=== PATIENT | male | born 1955 | race African-American/Black ===

== ENCOUNTER 2023-05-25 19:04 | Inpatient (IN) | payer OTHER ==
[~2023-05-25] VITALS: Ht 175.3 cm; Wt 96.7 kg
[2023-05-25] MEDS: SODIUM CHLORIDE 0.9% 1000ML BAG (SEPSIS BOLUS) IV ONE (19:15)
[2023-05-25 19:40] LABS: BASOPHILS % 0.4 % (0.0-2.0); EOSINOPHILS % 0.2 % (0.0-5.0); HEMATOCRIT. 34.6 % (42.0-52.0); HEMOGLOBIN. 11.3 g/dL (14.0-18.0); LYMPHOCYTES % 14.9 % (20.0-50.0); MEAN CORPUSCULAR HEMOGLOBIN 28.1 pg (28.0-32.0); MEAN CORPUSCULAR HGB CONC 32.7 g/dL (31.0-37.0); MEAN PLATELET VOLUME 7.9 fl (7.4-10.4); MONOCYTES % 13.5 % (2.0-8.0); PLATELET 266 x1000/uL (130-400); RED BLOOD CELL COUNT 4.02 mill/uL (4.7-6.1); RED CELL DISTRIBUTION WIDTH 16.2 % (11.6-14.6); WHITE BLOOD COUNT 9.4 x1000/uL (4.5-11.0)
[2023-05-25] MEDS: ACETAMINOPHEN 325MG TABLET PO STA (19:49)
[2023-05-25 19:58] LABS: ALANINE AMINOTRANSFERASE 21 IU/L (10-49); ASPARTATE AMINOTRANSFERASE 37 IU/L (<34); BILIRUBIN TOTAL 1.3 mg/dL (0.1-1.0); CALCIUM 8.3 mg/dL (8.7-10.4); CARBON DIOXIDE 28 mEq/L (21-32); CHLORIDE 107 mEq/L (98-107); GLUCOSE 182 mg/dL (70-105); PROTEIN TOTAL 7.3 g/dL (6.0-8.3); SODIUM 142 mEq/L (136-145); UREA NITROGEN BLOOD 13 mg/dL (9-23)
[2023-05-25 20:00] LABS: POTASSIUM 2.8 mEq/L (3.5-5.1)
[2023-05-25 20:01] LABS: TROPONIN I HIGH SENSITIVITY 1432 ng/L (3.0-53)
[2023-05-25] MEDS: FUROSEMIDE 40MG/4ML VIAL IVP ONE (22:15)
[2023-05-25] MEDS: ASPIRIN 81MG TABLET PO ONE (22:15)
[2023-05-25] MEDS: POTASSIUM CHLORIDE 20MEQ/PACKET PO ONE (22:15)
[2023-05-25] MEDS: KCL 20MEQ/100ML PREMIX 100 ML IV ONE (22:43)
[2023-05-26] VITALS (8 sets, daily range): BP systolic 86–128; BP diastolic 59–82; PULSE 79–88; RESP 16–33; TEMP 97.6–98.5
[2023-05-26 00:09] LABS: TROPONIN I HIGH SENSITIVITY 3085 ng/L (3.0-53)
[2023-05-26] MEDS: ENOXAPARIN 80MG/0.8ML SYR SUBCUT ONE (00:24)
[2023-05-26] MEDS: AZITHROMYCIN 500MG/250ML 250 ML IV ONE (00:24)
[2023-05-26] MEDS: CEFTRIAXONE 1GM/50ML 50 ML IV ONE (00:24)
[2023-05-26 08:48] LABS: CLARITY URINE CLOUDY (CLEAR); COLOR URINE YELLOW (YELLOW); GLUCOSE URINE 3+ (NEGATIVE); KETONES URINE TRACE (NEGATIVE); LEUKOCYTE ESTERASE URINE TRACE (NEGATIVE); NITRITE URINE POSITIVE (NEGATIVE); OCCULT BLOOD URINE 1+ (NEGATIVE); PH URINE 5.5 (4.5-8.0); PROTEIN URINE TRACE (NEGATIVE); SPECIFIC GRAVITY URINE 1.015 (1.005-1.030)
[2023-05-26 09:35] LABS: BACTERIA URINE 3+
[2023-05-26 09:36] LABS: SQUAMOUS EPITHELIAL CELL URINE 1+ /lpf (RARE/1+)
[2023-05-26 09:37] LABS: WBC URINE 0-2 /hpf (0-2); YEAST URINE 1+
[2023-05-26 09:38] LABS: RBC URINE NONE SEEN /hpf (0-2)
[2023-05-26] MEDS ORDERED: ONDANSETRON HCL 4MG/2ML INJ IV PRN (11:30)
[2023-05-26] MEDS ORDERED: ACETAMINOPHEN 325MG TABLET PO PRN (11:30)
[2023-05-26] MEDS: AZITHROMYCIN 250 MG TABLET PO SCH (12:00)
[2023-05-26] MEDS: ASPIRIN 81MG TABLET PO SCH (13:15)
[2023-05-26] MEDS: TAMSULOSIN HCL 0.4MG SR CAPSULE PO SCH (13:15)
[2023-05-26] MEDS: FUROSEMIDE 20MG/2ML VIAL IVP SCH (17:02)
[2023-05-26 18:44] LABS: TROPONIN I HIGH SENSITIVITY 2586 ng/L (3.0-53)
[2023-05-26] MEDS ORDERED: IPRATROPIUM/ALBUTEROL 0.5-3(2.5)MG/3ML NEB HHN PRN (19:45)
[2023-05-26] MEDS: ATORVASTATIN CALCIUM 40MG TABLET PO SCH (21:45)
[2023-05-26] MEDS: CEFTRIAXONE 1GM/50ML 50 ML IV SCH (21:45)
[2023-05-26] MEDS: ENOXAPARIN 100MG/ML SYR SUBCUT SCH (21:46)
[2023-05-27] VITALS: BP 129/77; PULSE 83; RESP 27; TEMP 97.5
[2023-05-27 02:00] VITALS: BP 121/90; PULSE 89; RESP 24
[2023-05-27 04:00] VITALS: BP 102/71; PULSE 84; RESP 24; TEMP 98
[2023-05-27 05:45] LABS: BASOPHILS % 0.1 % (0.0-2.0); HEMATOCRIT. 34.1 % (42.0-52.0); HEMOGLOBIN. 11.5 g/dL (14.0-18.0); LYMPHOCYTES % 17.1 % (20.0-50.0); MEAN CORPUSCULAR HEMOGLOBIN 28.5 pg (28.0-32.0); MEAN CORPUSCULAR HGB CONC 33.7 g/dL (31.0-37.0); MEAN CORPUSCULAR VOLUME 84.7 fL (80.0-94.0); MEAN PLATELET VOLUME 8.3 fl (7.4-10.4); MONOCYTES % 9.6 % (2.0-8.0); NEUTROPHILS % 72.2 % (40.0-76.0); PLATELET 286 x1000/uL (130-400); RED BLOOD CELL COUNT 4.02 mill/uL (4.7-6.1); RED CELL DISTRIBUTION WIDTH 16.2 % (11.6-14.6)
[2023-05-27 06:00] VITALS: BP 107/72; RESP 11
[2023-05-27 06:01] LABS: CALCIUM 8.3 mg/dL (8.7-10.4); CARBON DIOXIDE 26 mEq/L (21-32); CHLORIDE 103 mEq/L (98-107); CREATININE 0.8 mg/dL (0.6-1.3); GLUCOSE 162 mg/dL (70-105); PHOSPHORUS 2.5 mg/dL (2.5-4.9); POTASSIUM 3.1 mEq/L (3.5-5.1); SODIUM 138 mEq/L (136-145); UREA NITROGEN BLOOD 17 mg/dL (9-23)
[2023-05-27 07:33] VITALS: BP 112/78; PULSE 82; TEMP 97.5; O2SAT 93
[2023-05-27] MEDS ORDERED: POTASSIUM CHLORIDE 20MEQ TABLET SR PO NR (11:30)
== END 2023-05-27 09:00 | disposition short-term general hospital (02) | DRG 280 ==
LOC: ER 19:04 → EDBEDREQTM 05-26 01:25 → 5EST 05-26 01:27 → EDBEDREQTM 05-26 01:47 → EDBEDREQ 05-26 01:47 → EDBEDREQSVC 05-26 01:47 → EDBEDREQDT 05-26 01:47
PROVIDERS: ADMIT Internal Medicine; ATTEND Internal Medicine
DX: I21.4 Non-ST elevation (NSTEMI) myocardial infarction (principal); J18.9 Pneumonia, unspecified organism; J96.01 Acute respiratory failure with hypoxia; E87.6 Hypokalemia; I25.10 Atherosclerotic heart disease of native coronary artery without angina pectoris; Z20.822 Contact with and (suspected) exposure to COVID-19; D64.9 Anemia, unspecified; E11.9 Type 2 diabetes mellitus without complications; I11.0 Hypertensive heart disease with heart failure; I50.9 Heart failure, unspecified; Z95.5 Presence of coronary angioplasty implant and graft; Z85.46 Personal history of malignant neoplasm of prostate; Z85.850 Personal history of malignant neoplasm of thyroid
CPT/HCPCS: 36415; 71045; 80048; 80053; 81003; 83605; 83735; 83880; 84100; 84484; 85025; 87426; 87804; 93005; 93306; 99291; J0456; J0696; J1650; J1940; J3480; J7030